=== PATIENT | female | born 1990 | race Caucasian/White ===

== ENCOUNTER → 2017-06-02 | Outpatient (CLI) | payer OTHER | LOC: FIMAGING 17:53 | PROVIDERS: ATTEND Obstetrics & Gynecology | DX: R10.2 Pelvic and perineal pain (principal); R93.5 Abnormal findings on diagnostic imaging of other abdominal regions, including retroperitoneum ==

== ENCOUNTER 2018-01-28 22:26 | Inpatient (IN) | payer OTHER ==
[2018-01-28] MEDS ORDERED: OLIVE OIL 118 ML BTL MISC PRN (22:44)
[2018-01-28] MEDS ORDERED: LIDOCAINE 1% 300 MG/30 ML SDV SC PRN (22:44)
[2018-01-28] MEDS ORDERED: MISOPROSTOL 200 MCG TAB PR PRN (22:44)
[2018-01-28] MEDS ORDERED: IBUPROFEN 600 MG TAB PO PRN (22:44)
[2018-01-28] MEDS ORDERED: OXYTOCIN/RINGERS LACTATE 1,000 ML IV PRN (22:44)
[2018-01-28] MEDS ORDERED: TERBUTALINE SULFATE 1 MG/ML VIAL IV PRN (22:44)
[2018-01-28] MEDS ORDERED: EPSOM SALT 454 GM TP PRN (22:44)
[2018-01-28] MEDS ORDERED: LR 1,000 ML IV PRN (22:44)
--- NOTE | 2018-01-28 22:47 | PDGENHP ---
History and Physical History and Physical: CARE: [facility] HPI: Patient is a 27yo G [id number] that presents to L&D with complaints of contractions since 1400, she denies EDC: 02/02/2018 which is based on LMP: 04/27/17 which is known and consistent with Ultrasound at 9 weeks. Her is complicated by: none HISTORY: Previous OB history: x1, 6#12 Past medical history: noncontributory Past surgical history: oral surgery Medications: PNV Allergies (list reaction): NKDA LABS: Rh: O pos ABS: Neg Rubella: Immune HbsAg: NR HIV: NR VDRL: NR 1hr: 98 GC: Neg Chlamydia: Neg Pap: Normal GBS: negative BMI: (prepreg)23 PHYSICAL EXAM: Constitutional: WN, A&Ox3 HEENT: normocephalic atraumatic, supple Heart: RRR, no murmur Chest: CTA-B Abdomen: Soft, nontender, gravid SVE: 5/80/-2 Extremities: trace edema, negative homans sign Neuro: grossly normal Psych: normal affect assessment: Reassuring FHTs, baseline 125 +accels, no decels, moderate variability Contractions: toco q 4-6 Assessment: 1) [id number] with IUP@39-2 2) active labor 3) GBS negative 4) Cat 1 FHR tracing Plan: 1) Admit to L&D 2) expectant management/hydrotherapy 3) AROM PRN 4) anticipate
[2018-01-28 23:33] LABS: PLATELET COUNT 156 10^3/uL (150-400)
[2018-01-29] MEDS ORDERED: LIDOCAINE 1% 300 MG/30 ML SDV ONE (00:18)
[2018-01-29] MEDS ORDERED: AMMONIA AROMATIC 1 EACH AMP IH ONE (00:19)
[2018-01-29] MEDS ORDERED: OLIVE OIL 118 ML BTL ONE (00:19)
[2018-01-29] MEDS ORDERED: OXYTOCIN 10 UNIT/ML VIAL ONE (00:19)
[2018-01-29] MEDS ORDERED: MISOPROSTOL 200 MCG TAB ONE (00:19)
[2018-01-29] MEDS ORDERED: HYDROCORTISONE 0.5% CREAM TP PRN (03:08)
[2018-01-29] MEDS ORDERED: SIMETHICONE 80 MG TAB CHEW PO PRN (03:08)
[2018-01-29] MEDS ORDERED: HYDROCODONE/APAP 5/325 TAB PO PRN (03:08)
--- NOTE | 2018-01-29 03:13 | OBDEL ---
Info Type: Vaginal Presentation at Delivery: Vertex L&D Analgesia/Anesthesia Type: None GBS+: No Intrapartum Medications: Discontinued Medications Generic Name Dose Route Start Last Admin Trade Name Alex PRN Reason Stop Dose Admin Ibuprofen 600 mg 01/28/18 22:44 01/29/18 03:09 Motrin PO 600 mg ONCE PRN Administration post , pain Indications for Delivery: Spontaneous Labor Vaginal Delivery - Delivery Provider Delivery Physician/CNM: Linda Ross - Labor and Delivery Onset of Contractions Date: 01/28/18 Onset of Contractions Time: 18:30 Onset of Contractions Type: Spontaneous Rupture of Membranes Date: 01/29/18 Rupture of Membranes Time: 02:15 Rupture of Membranes Type: Artificial Amniotic Fluid Color: Clear Dilation Complete Date: 01/29/18 Dilation Complete Time: 02:25 Placenta Delivery Date: 01/29/18 Placenta Delivery Time: 02:45 Total Hours of Labor: 8 Non-surgical Procedures: Amniotomy Laceration: Other (Specify) (right labial) Repair: [id number], Chromic Vaginal Sponge Count Correct: Yes Vaginal Needle Count Correct: Yes Vaginal Sweep Performed: Yes EBL: 200 Delivery Events: None Delivery Comment: delivered on stool, dad helped catch [place] Data OSMAR: 02/02/18 Gestational Age: 39 week(s) and 3 day(s) [place] Delivery Date: 01/29/18 Delivery Time: 02:33 Sex of Infant: Female Score (1 Min): 8 Score (5 Min): 9 ICD10 Worksheet Patient Problems: Problems Problem Status Onset Laceration of labia minora Acute (spontaneous vaginal delivery) Acute - ICD10 Problem Qualifiers (1) Laceration of labia minora
[2018-01-29] MEDS: DOCUSATE SODIUM 100 MG CAP PO PRN ×2 (09:26→23:40)
[2018-01-29] MEDS: IBUPROFEN 600 MG TAB PO PRN ×3 (09:27→23:40)
[2018-01-30] MEDS: IBUPROFEN 600 MG TAB PO PRN ×2 (05:43→12:15)
[2018-01-30 08:45] VITALS: BP 109/80
--- NOTE | 2018-01-30 12:11 | OBPP ---
Progress Note Assessment/Plan: Assessment: PPD1 s/p . Rh pos, RI. Discussed f/u visits at 4 and 6 wks. HUBERT Subjective/ Course: 01/30/18 16:32 Emily is doing great today - ready to go home if possible. Pain controlled BF going well. No need for any meds at home. Objective: 01/28/18 23:10 Patient ABO/Rh O POSITIVE 01/28/18 23:10 Temp Pulse Resp BP Pulse Ox 37.1 C 75 14 109/80 98 01/30/18 08:45 01/30/18 08:45 01/30/18 08:45 01/30/18 08:45 01/30/18 08:45 Uterine Position/Fundal Height: At Umbilicus Uterine Tone: Firm
--- NOTE | 2018-01-30 12:12 | OBGCSDC ---
General Delivery Information - General Info : 2 Para: 2 Abortions: 0 Type: Vaginal L&D Analgesia/Anesthesia Type: Local Admission Date: 01/28/18 Labs: Patient ABO/Rh O POSITIVE 01/28/18 23:10 Hct 37.4 % (38.0-47.0) L 01/28/18 23:10 Vaginal - Delivery Provider Delivery Physician/CNM: Linda Ross - Diagnosis Labor: Spontaneous Rupture of Membranes Type: Artificial Amniotic Fluid Color: Clear Laceration: Other (Specify) (right labial) Repair: 4-0, Chromic Delivery Events: None - Procedures Non-surgical Procedures: Amniotomy - Delivery Non-surgical Procedures: Amniotomy EBL: 200 [place] Data OSMAR: 02/02/18 Gestational Age: 39 week(s) and 4 day(s) [place] Delivery Date: 01/29/18 Delivery Time: 02:33 Sex of Infant: Female [place] Weight (gm): 3118 kg Score (1 Min): 8 Score (5 Min): 9 Discharge Information - Discharge Information Condition: Good Instruction/Follow Up: See Instruction Sheet, Four Weeks, Six Weeks
== END 2018-01-30 12:30 | disposition home or self-care (01) | DRG 775 ==
LOC: OBSVTOIN 22:26 → FLD 22:26 → FOB 01-29 04:26
PROVIDERS: ADMIT Advanced Practice Midwife; ATTEND Advanced Practice Midwife
PROC: 0HQ9XZZ Repair Perineum Skin, External Approach (ICD-10-PCS; principal; 2018-01-29)
PROC: 10E0XZZ Delivery of Products of Conception, External Approach (ICD-10-PCS; principal; 2018-01-29)
PROC: 10907ZC Drainage of Amniotic Fluid, Therapeutic from Products of Conception, Via Natural or Artificial Opening (ICD-10-PCS; principal; 2018-01-29)
DX: O70.0 First degree perineal laceration during delivery (principal); Z37.0 Single live birth; Z3A.39 39 weeks gestation of pregnancy
CPT/HCPCS: J2590